=== PATIENT | female | born 1955 | race Caucasian/White ===

== ENCOUNTER 2017-05-24 15:02 | Outpatient (CLI) | payer MEDICAID ==
--- NOTE | 2017-05-25 12:17 | XRAY Report ---
TWO-VIEW RIGHT WRIST: 05/24/2017 HISTORY: Wrist pain. FINDINGS: There is no acute fracture or focus of destruction or malalignment. The soft tissues are within normal limits. The alignment is anatomic. Mild degenerative changes exist. IMPRESSION: MILD DEGENERATIVE CHANGES. NO ACUTE FRACTURE OR MALALIGNMENT. JOB #: [id number] EXT JOB #:[id number]
== END 2017-05-24 15:03 | disposition home or self-care (01) ==
LOC: DI.N 15:02
PROVIDERS: ATTEND Physician Assistant
DX: M19.041 Primary osteoarthritis, right hand (principal)

== ENCOUNTER 2017-12-10 16:32 | Outpatient (CLI) | payer MEDICAID | END 2017-12-10 16:33 | disposition home or self-care (01) | LOC: LAB.R 16:32 | PROVIDERS: ATTEND Physician Assistant Medical | DX: R10.13 Epigastric pain (principal) | CPT/HCPCS: 83013 ==

== ENCOUNTER 2017-12-22 08:00 | Outpatient (CLI) | payer MEDICAID ==
[2017-12-22 12:57] LABS: BASOPHILS # (AUTO) 0.1 10^3/uL (0.0-0.1); BASOPHILS % (AUTO) 0.8 %; EOSINOPHILS # (AUTO) 0.2 10^3/uL (0.0-0.7); EOSINOPHILS % (AUTO) 2.5 %; HGB - HEMOGLOBIN 13.6 g/dL (12.0-16.0); LYMPHOCYTES # (AUTO) 2.7 10^3/uL (1.5-3.5); LYMPHOCYTES % (AUTO) 35.5 %; MEAN CORPUSCULAR HEMOGLOBIN 29.1 pg (27.0-31.0); MEAN CORPUSCULAR HGB CONC 33.4 g/dL (32.0-36.0); MEAN CORPUSCULAR VOLUME 86.9 fL (81.0-99.0); MEAN PLATELET VOLUME 8.9 fL (7.9-10.8); MONOCYTES # (AUTO) 0.7 10^3/uL (0.0-1.0); MONOCYTES % (AUTO) 8.4 %; NEUTROPHILS # (AUTO) 4.1 10^3/uL (1.5-6.6); NEUTROPHILS % (AUTO) 52.8 %; PLT - PLATELET COUNT 259 10^3/uL (130-450); RED BLOOD COUNT 4.67 10^6/uL (4.20-5.40); RED CELL DISTRIBUTION WIDTH 12.6 % (12.0-15.0); WHITE BLOOD COUNT 7.7 x10^3/uL (4.8-10.8)
[2017-12-22 13:18] LABS: CALCIUM 9.8 mg/dL (8.5-10.3)
== END 2017-12-22 08:01 | disposition home or self-care (01) ==
LOC: LAB.N 08:00
PROVIDERS: ATTEND Physician Assistant Medical
DX: R10.13 Epigastric pain (principal)
CPT/HCPCS: 36415; 80048; 85025

== ENCOUNTER 2019-08-23 11:49 | Emergency (ER) | payer MEDICAID ==
[2019-08-23 11:55] VITALS: BP 164/84
--- NOTE | 2019-08-23 12:09 | ED Physician Documentation ---
PD HPI OPHTHO - Stated complaint Stated Complaint: VISION CHANGES - Chief complaint Chief Complaint: Heent - History obtained from History obtained from: Patient - History of Present Illness Timing - onset: Yesterday Timing - details: Abrupt onset, Still present (She awoke with an appearance of a floater in the right eye along the lateral visual field. It looks like a small worm. Through the day yesterday she noticed the lateral aspect of her visual field become more hazy and slightly darkened. The rest of the visual field seemed normal. She has some macular degeneration in the other eye so really is dependent on this I has her concerned.) Location: Right Quality / character: Other (floaters and clouded vision laterally). No: Aching, Throbbing Associated symptoms: Decreased vision. No: Redness, Swelling, Photophobia, Double vision Contributing factors: No: Recent URI, Blunt trauma Similar symptoms before: Has not had sx before Recently seen: Not recently seen Review of Systems Constitutional: denies: Fever Eyes: reports: Decreased vision. denies: Loss of vision, Photophobia, Discharge, Irritation Nose: denies: Rhinorrhea / runny nose, Congestion Throat: denies: Sore throat Cardiac: denies: Chest pain / pressure Respiratory: denies: Cough Neurologic: denies: Focal weakness, Numbness PD PAST MEDICAL HISTORY - Past Medical History Past Medical History: Yes - Present Medications Home Medications: Ambulatory Orders Medication Instructions Recorded Confirmed No Known Home Medications 08/23/19 08/23/19 - Allergies Allergies/Adverse Reactions: Allergies Allergy/AdvReac Type Severity Reaction Status Date / Time bee venom protein (honey bee) Allergy Hives Verified 08/23/19 11:55 Fish Containing Products Allergy Hives Verified 08/23/19 11:55 latex Allergy Hives Verified 08/23/19 11:55 PD ED PE NORMAL - Vitals Vital signs reviewed: Yes - General General: Alert and oriented X 3, No acute distress, Well developed/nourished - HEENT HEENT: PERRL, EOMI, Pharynx benign PD ED PE EXPANDED - Eyes Eyes: Right eye, Anterior chambers clear, Normal fundi, Other (I can see some cloudiness in the posterior chamber laterally. The retinal blood flow appears normal through most of the posterior chamber but hard to visualize fully at the lateral edge due to the cloudiness. This is suggestive of a posterior chamber blood. We will have ophthalmology tried to examine her to distinguish a vitreous hemorrhage versus retinal detachment.). No: Eyelid injury, Eyelid swelling, Exudate Results - Vitals Vitals: Oxygen O2 Source Room air PD MEDICAL DECISION MAKING - ED course Complexity details: considered differential (It does not sound neurologic nor cerebrovascular. It seems like a high process. The fundus is good and most of the retina is visible but there is cloudiness to the edge and I cannot fully distinguish a vitreous hemorrhage versus a partial retinal detachment. We contacted [facility] and they are able to see the patient in about an hour in the office. The patient is discharged from the department and will go there for further assessment.), d/w patient Departure - Departure Disposition: Home, Self Care Clinical Impression: Chest pain Qualifiers: Chest pain type: precordial pain Qualified Code(s): R07.2 - Precordial pain Floaters in visual field Qualifiers: Laterality: unspecified laterality Qualified Code(s): H43.399 - Other vitreous opacities, unspecified eye Condition: Stable Record reviewed to determine appropriate education?: Yes Instructions: ED Chest Pain Atypical Unkn Cause Follow-Up: Yohan Hernandez PA-C [Primary Care Provider] - Rich Pemberton MD [Physician No Access] - Comments: Go to the ophthalmology office directly from here for further evaluation.(appt at 2:30). Regarding the episodes of chest pain and palpitations, follow-up with your primary care for potential Holter monitor and ultrasound of the heart called an echocardiogram. Otherwise could follow-up with cardiology as well and I gave the name of 1 of the art dealer in [facility] though it does not have to be that particular art dealer but anybody from the group. Discharge Date/Time: 08/23/19 13:32
== END 2019-08-23 13:32 | disposition home or self-care (01) ==
LOC: ED 11:49
DX: H43.391 Other vitreous opacities, right eye (principal); H53.8 Other visual disturbances; R07.9 Chest pain, unspecified; R00.2 Palpitations
CPT/HCPCS: 93005; 99283

== ENCOUNTER 2019-12-12 13:23 | Outpatient (CLI) | payer MEDICAID ==
--- NOTE | 2019-12-12 15:22 | XRAY Report ---
Reason: PAIN IN LEFT WRIST Procedure Date: 12/12/2019 Accession Number: [id number] / [id number] Procedure: XRN - Wrist 3 View LT CPT Code: Final Report FULL RESULT: EXAM: LEFT WRIST RADIOGRAPHY 3 VIEWS EXAM DATE: 12/12/2019. CLINICAL HISTORY: Left wrist pain. COMPARISON: None. TECHNIQUE: PA, oblique and lateral views. FINDINGS: Bones: No acute fracture or other acute osseous abnormality. Joints: Widening of the navicular-lunate joint, 5.5 mm, the navicular and the lunate are to adjacent shallow well-defined concavities in the distal radius. The other joints appear normal. Soft Tissues: Normal. No soft tissue swelling. IMPRESSION: Widening of the navicular-lunate joint space, suggesting a ligament injury, probably of long-standing. This could be further evaluated with MRI. Otherwise normal examination. RADIA
== END 2019-12-12 13:24 | disposition home or self-care (01) ==
LOC: DI.N 13:23
PROVIDERS: ATTEND Physician Assistant Medical
DX: M25.532 Pain in left wrist (principal)

== ENCOUNTER 2020-05-29 08:00 | Outpatient (CLI) | payer MEDICAID ==
[2020-05-29 18:44] LABS: BASOPHILS # (AUTO) 0.1 10^3/uL (0.0-0.1); BASOPHILS % (AUTO) 0.8 %; EOSINOPHILS # (AUTO) 0.2 10^3/uL (0.0-0.7); EOSINOPHILS % (AUTO) 3.2 %; HGB - HEMOGLOBIN 13.6 g/dL (12.0-16.0); LYMPHOCYTES # (AUTO) 2.3 10^3/uL (1.5-3.5); LYMPHOCYTES % (AUTO) 34.7 %; MEAN CORPUSCULAR HEMOGLOBIN 28.3 pg (27.0-31.0); MEAN CORPUSCULAR HGB CONC 31.2 g/dL (32.0-36.0); MEAN CORPUSCULAR VOLUME 90.8 fL (81.0-99.0); MEAN PLATELET VOLUME 11.1 fL (7.9-10.8); MONOCYTES # (AUTO) 0.5 10^3/uL (0.0-1.0); MONOCYTES % (AUTO) 8.3 %; NEUTROPHILS # (AUTO) 3.4 10^3/uL (1.5-6.6); NEUTROPHILS % (AUTO) 52.7 %; PLT - PLATELET COUNT 265 10^3/uL (130-450); RED CELL DISTRIBUTION WIDTH 12.9 % (12.0-15.0); WHITE BLOOD COUNT 6.5 x10^3/uL (4.8-10.8)
[2020-05-29 19:02] LABS: ALBUMIN 3.9 g/dL (3.2-5.5); ALBUMIN/GLOBULIN RATIO 1.1 (1.0-2.2); BILIRUBIN,TOTAL 0.6 mg/dL (0.2-1.0); CALCIUM 9.6 mg/dL (8.5-10.3); CREATININE 0.9 mg/dL (0.4-1.0); TOTAL PROTEIN 7.4 g/dL (6.7-8.2)
[2020-05-29 19:14] LABS: THYROID STIMULATING HORMONE 2.58 uIU/mL (0.34-5.60)
[2020-05-29 19:16] LABS: FREE T4 (FREE THYROXINE) 0.89 ng/dL (0.58-1.64)
== END 2020-05-29 23:59 | disposition home or self-care (01) ==
LOC: LAB.WCP 08:00
PROVIDERS: ATTEND Physician Assistant Medical
DX: R53.83 Other fatigue (principal)
CPT/HCPCS: 36415; 80053; 84439; 84443; 85025

== ENCOUNTER 2020-06-26 12:23 | Outpatient (CLI) | payer MEDICAID ==
--- NOTE | 2020-06-26 16:27 | CT Report ---
PROCEDURE: Sinuses INDICATIONS: LEFT MAXILLARY SINUSITIS TECHNIQUE: Noncontrast 3.0 mm axial images acquired from the frontal sinuses to the mid-sella, with coronal and sagittal reformats. For radiation dose reduction, the following was used: automated exposure control , adjustment of mA and/or kV according to patient size. COMPARISON: None. FINDINGS: Image quality: Excellent. Sinuses: Minimal mucosal thickening is present within the maxillary ethmoid sinuses. Frontal sinuses are hypoplastic. Ostiomeatal Complexes: Ostiomeatal complexes are patent. No Aura cells. Miscellaneous: Visualized intra-orbital contents are normal. No yolanda bullosa. Minimal rightward n silva septal deviation. No paradoxical turbinates. IMPRESSION: 1. Minimal maxillary and ethmoid mucosal thickening. 2. Ostiomeatal complexes are patent. Reviewed by: Pepper Coreas MD on 06/26/2020 4:25 PM PDT Approved by: Pepper Coreas MD on 06/26/2020 4:25 PM PDT Station ID: [id number]
== END 2020-06-26 12:24 | disposition home or self-care (01) ==
LOC: DI 12:23
PROVIDERS: ATTEND Physician Assistant
DX: J34.89 Other specified disorders of nose and nasal sinuses (principal)
CPT/HCPCS: 70486

== ENCOUNTER 2020-09-13 07:00 | Outpatient (CLI) | payer MEDICAID | END 2020-09-13 23:59 | disposition home or self-care (01) | LOC: COV 07:00 | PROVIDERS: ATTEND Surgery | DX: Z01.812 Encounter for preprocedural laboratory examination (principal); R10.13 Epigastric pain; R68.81 Early satiety; Z20.828 Contact with and (suspected) exposure to other viral communicable diseases ==

== ENCOUNTER 2020-09-19 11:20 | Day surgery (SDC) | payer MEDICAID ==
[2020-09-19] MEDS ORDERED: LACTATED RINGERS 1,000 ML IV ONE ×2 (12:41→14:17)
--- NOTE | 2020-09-19 13:18 | ANESTHESIA ---
Pre-Anesthesia VS, & Labs - Diagnosis epigastric pain, family history of colon cancer - Procedure EGD with biopsies, colonoscopy Vital Signs: Temp Pulse Resp BP Pulse Ox 36.4 C L 75 18 146/82 H 97 09/19/20 12:08 09/19/20 12:08 09/19/20 12:08 09/19/20 12:08 09/19/20 12:08 Height: 5 ft Weight (kg): 73 kg Body Mass Index: 31.4 BMI Classification: Obese - NPO >8 hours - Is Patient ?: No Home Medications and Allergies Home Medications: Ambulatory Orders Fluticasone [Flonase] 1 sprays ABEBE BID 09/11/20 buPROPion [Wellbutrin Sr] 150 mg PO BID 09/11/20 cloNIDine [Catapres] 0.1 mg PO ONCE 09/11/20 lamoTRIgine [LaMICtal] 100 mg PO BID 09/11/20 Fluticasone [Flonase] 1 sprays ABEBE BID 09/11/20 buPROPion [Wellbutrin Sr] 150 mg PO BID 09/11/20 cloNIDine [Catapres] 0.1 mg PO ONCE 09/11/20 lamoTRIgine [LaMICtal] 100 mg PO BID 09/11/20 Allergies/Adverse Reactions: Allergies Allergy/AdvReac Type Severity Reaction Status Date / Time bee venom protein (honey bee) Allergy Hives Verified 08/23/19 11:55 Fish Containing Products Allergy Hives Verified 08/23/19 11:55 latex Allergy Anaphylaxis Verified 09/11/20 11:42 povidone-iodine Allergy Rash Verified 09/11/20 11:42 [From Betadine] soap [From Betadine] Allergy Rash Verified 09/11/20 11:42 Sulfa (Sulfonamide Allergy Hives Verified 09/11/20 11:42 Antibiotics) Anes History & Medical History - Anesthetic History Anesthesia Complications: reports: Post-Operative Nausea/Vomiting, Emergence delirium - Medical History Cardiovascular: reports: High cholesterol Pulmonary: reports: None Gastrointestinal: reports: GERD Urinary: reports: None Neuro: reports: None Musculoskeletal: reports: Osteoarthritis Endocrine/Autoimmune: reports: None Blood Disorders: reports: None Skin: reports: None Smoking Status: Former smoker (quit 1 year ago) Psychosocial: reports: Anxiety, Other (PTSD) History of Cancer?: No - Surgical History General: Colonoscopy Gynecologic: section, Hysterectomy Orthopedic: Other Exam General: Alert, Oriented x3, Cooperative, No acute distress Dental: Partials Lower Mouth Openin Fingerbreadth Neck Mobility: Normal Mallampati classification: II Thyromental Distance: 4-6 cm Mental/Cognitive Status: Alert/Oriented X3, Normal for patient Plan Anesthesia Type: MAC Consent for Procedure(s) Verified and Reviewed: Yes Code Status: Attempt Resuscitation ASA classification: 2-Mild systemic disease Is this case an emergency?: No
[2020-09-19] MEDS ORDERED: fentaNYL 100 MCG/2 ML VIAL IVP ONE (13:34)
[2020-09-19] MEDS ORDERED: PROPOFOL 200 MG/20 ML VIAL IVP ONE (13:34)
[2020-09-19 14:39] VITALS: BP 130/69
--- NOTE | 2020-09-19 16:30 | ANESTHESIA POST OP EVALUATION ---
Anesthesia Post Eval - Post Anesthesia Eval Vitals: Last Vital Signs Temp 36.2 C L 09/19/20 14:13 Pulse 80 09/19/20 14:25 Resp 16 09/19/20 14:25 BP 130/69 09/19/20 14:25 Pulse Ox 100 09/19/20 14:25 CV Function Including HR & BP: positive: Stable Pain Control: positive: Satisfactory Nausea & Vomiting: positive: Negative Mental Status: positive: Baseline Respiratory Status: Airway Patent Hydration Status: Satisfactory Anesthesia Complications: positive: None
== END 2020-09-19 11:21 | disposition home or self-care (01) ==
LOC: SDS 11:20
PROVIDERS: ATTEND Surgery
PROC: 0DB68ZX Excision of Stomach, Via Natural or Artificial Opening Endoscopic, Diagnostic (ICD-10-PCS; principal; 2020-09-19 12:30)
DX: K29.50 Unspecified chronic gastritis without bleeding (principal); K20.90 Esophagitis, unspecified without bleeding; E66.9 Obesity, unspecified; Z68.31 Body mass index [BMI] 31.0-31.9, adult; Z80.0 Family history of malignant neoplasm of digestive organs; Z83.71 Family history of colonic polyps
CPT/HCPCS: 43239; J7120

== ENCOUNTER 2020-11-11 06:52 | Outpatient (CLI) | payer MEDICAID | END 2020-11-11 23:59 | disposition short-term general hospital (02) | LOC: EMS 06:52 | DX: M54.9 Dorsalgia, unspecified (principal) | CPT/HCPCS: A0425; A0427; A0999 ==

== ENCOUNTER 2021-07-03 17:20 | Outpatient (CLI) | payer MEDICAID | END 2021-07-03 23:59 | disposition home or self-care (01) | LOC: LAB 17:20 | PROVIDERS: ATTEND Physician Assistant Medical | DX: R05 Cough (principal); Z20.822 Contact with and (suspected) exposure to COVID-19 ==

== ENCOUNTER 2022-02-25 21:40 | Outpatient (CLI) | payer MEDICARE, MEDICAID | END 2022-02-25 21:41 | disposition critical access hospital (66) | LOC: EMS 21:40 | DX: M54.50 Low back pain, unspecified (principal) | CPT/HCPCS: A0425; A0429 ==

== ENCOUNTER 2022-02-25 22:00 | Emergency (ER) | payer MEDICARE, MEDICAID ==
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
[2022-02-25] MEDS ORDERED: HYDROmorphone 1 MG/ML CARPUJECT IVP STA (22:51)
[2022-02-25] MEDS ORDERED: ONDANSETRON 4 MG/2 ML VIAL IVP STA (22:51)
[2022-02-25] MEDS ORDERED: SODIUM CHLORIDE 0.9% 1,000 ML IV STA (22:52)
[2022-02-25] MEDS ORDERED: IOVERSOL 320 100 ML VIAL IVP ONE ×2 (23:09→23:57)
[2022-02-25 23:14] LABS: BASOPHILS # (AUTO) 0.1 10^3/uL (0.0-0.1); BASOPHILS % (AUTO) 0.5 %; EOSINOPHILS # (AUTO) 0.2 10^3/uL (0.0-0.7); EOSINOPHILS % (AUTO) 1.7 %; HCT - HEMATOCRIT 42.2 % (37.0-47.0); LYMPHOCYTES # (AUTO) 2.5 10^3/uL (1.5-3.5); LYMPHOCYTES % (AUTO) 25.2 %; MEAN CORPUSCULAR HGB CONC 33.2 g/dL (32.0-36.0); MEAN CORPUSCULAR VOLUME 87.4 fL (81.0-99.0); MEAN PLATELET VOLUME 10.7 fL (7.9-10.8); MONOCYTES # (AUTO) 0.8 10^3/uL (0.0-1.0); MONOCYTES % (AUTO) 7.6 %; NEUTROPHILS # (AUTO) 6.4 10^3/uL (1.5-6.6); NEUTROPHILS % (AUTO) 64.8 %; PLT - PLATELET COUNT 253 10^3/uL (130-450); RED BLOOD COUNT 4.83 10^6/uL (4.20-5.40); RED CELL DISTRIBUTION WIDTH 12.7 % (12.0-15.0); WHITE BLOOD COUNT 9.9 x10^3/uL (4.8-10.8)
[2022-02-25 23:27] LABS: ALBUMIN 3.7 g/dL (3.2-5.5); BILIRUBIN,TOTAL 0.5 mg/dL (0.2-1.0); CALCIUM 9.4 mg/dL (8.5-10.3); CREATININE 0.9 mg/dL (0.4-1.0); POTASSIUM 3.6 mmol/L (3.5-5.0); TOTAL PROTEIN 7.3 g/dL (6.7-8.2)
--- NOTE | 2022-02-26 00:43 | CT Report ---
PROCEDURE: Abdomen/Pelvis W INDICATIONS: Lower abdominal and pelvic pain CONTRAST: IV CONTRAST: Optiray 320 ml: 100 PO CONTRAST: *NO PO CONTRAST TECHNIQUE: After the administration of intravenous contrast, 5 mm thick sections acquired from the diaphragms to the symphysis. 5 mm thick coronal and sagittal reformats were acquired. For radiation dose reducti on, the following was used: automated exposure control, adjustment of mA and/or kV according to nilesh ent size. COMPARISON: None. FINDINGS: Image quality: Excellent. Lung bases: Unremarkable. Heart: Heart is normal in size. ABDOMEN: Liver:There is a small hypodensity in the right hepatic lobe measuring up to 1.4 cm suggestive of a slightly hyperdense cyst. A few additional scattered small hypodense foci are redemonstrated in the r ight and left hepatic lobe which are too small to characterize but likely represent cysts. Gallbladder:Surgically absent. Biliary ducts: No biliary ductal dilatation. Pancreas: Unremarkable. Spleen: Normal in size. Adrenal Glands: No adrenal nodules. Kidneys and Ureters: No hydronephrosis. Stomach and Bowel: Stomach, small bowel loops, and colon are normal in caliber and wall thickness. N o pericecal inflammatory changes to suggest appendicitis. Peritoneum: No abnormal intraperitoneal fluid. No free air. Ventral Wall: No hernia. Abdominal Nodes: No retroperitoneal or mesenteric adenopathy by size criteria. Vessels: Aorta and inferior vena cava are normal in size. PELVIS: Pelvic Organs:The uterus is surgically absent. Bladder: Unremarkable. Pelvic Nodes: No enlarged lymph nodes. Miscellaneous: No inguinal hernias are seen. Bones: Visualized osseous structures demonstrate no suspicious focal lesions. IMPRESSION: 1. No definite acute intra-abdominal abnormality. Specifically, no evidence of appendicitis or divert iculitis. Reviewed by: Dameon Doss MD on 02/26/2022 12:41 AM PDT Approved by: Dameon Doss MD on 02/26/2022 12:41 AM PDT Station ID: [id number]
[2022-02-26 01:10] LABS: BILIRUBIN,URINE NEGATIVE (NEGATIVE); GLUCOSE, URINE (UA) NEGATIVE (NEGATIVE); KETONES,URINE (UA) NEGATIVE (NEGATIVE); LEUKOCYTE ESTERASE, URINE NEGATIVE (NEGATIVE); NITRITE,URINE NEGATIVE (NEGATIVE); OCCULT BLOOD,URINE TRACE-INTA (NEGATIVE); PROTEIN,URINE NEGATIVE (NEGATIVE); UROBILINOGEN,URINE 0.2 (NORMAL) E.U./dL (NORMAL)
[2022-02-26 01:11] LABS: CLARITY,URINE CLEAR (CLEAR)
[2022-02-26] MEDS ORDERED: HYDROcod/ACET 5/325 Prepack 4 PO STA (01:25)
[2022-02-26 01:40] VITALS: BP 111/81
== END 2022-02-26 01:38 | disposition home or self-care (01) ==
LOC: EDSEX → EDUNIT# → ED 22:00
DX: M54.50 Low back pain, unspecified (principal); Z87.891 Personal history of nicotine dependence
CPT/HCPCS: 36415; 74177; 80053; 81003; 83690; 85025; 85651; 96374; 99282; 99284; J1170; Q9967; 81001; 87086

== ENCOUNTER 2022-03-06 11:40 | Outpatient (CLI) | payer MEDICARE, MEDICAID ==
--- NOTE | 2022-03-06 16:02 | XRAY Report ---
PROCEDURE: Lumbar Spine 2 View INDICATIONS: LUMBAGO W/ SCIATIC, LEFT SIDE TECHNIQUE: 3 views of the lumbar spine were acquired. COMPARISON: None. FINDINGS: Bones: 5 [id number] vertebrae are present. There is normal bony alignment. No vertebral body compression fractures. No suspicious bony lesions. Mild degenerative disc changes noted throughout t he lumbar spine. Mild L3-L4, L4-L5 and L5-S1 facet hypertrophy. Soft tissues: Overlying bowel gas pattern is normal. No suspicious soft tissue calcifications. IMPRESSION: 1. Multilevel degenerative disc disease. 2. Multilevel facet arthropathy. 3. No fracture. No acute osseous lesion. If there is continued clinical concern for pathology, then M RI should be considered for further evaluation. Reviewed by: Mary Pelayo MD, PhD on 03/06/2022 4:01 PM PDT Approved by: Mary Pelayo MD, PhD on 03/06/2022 4:01 PM PDT Station ID: [id number]
== END 2022-03-06 11:41 | disposition home or self-care (01) ==
LOC: DI.N 11:40
PROVIDERS: ATTEND Physician Assistant
DX: M47.816 Spondylosis without myelopathy or radiculopathy, lumbar region (principal); M47.817 Spondylosis without myelopathy or radiculopathy, lumbosacral region; M51.36 Other intervertebral disc degeneration, lumbar region

== ENCOUNTER 2022-06-10 11:07 | Outpatient (CLI) | payer MEDICARE ==
[2022-06-10 18:06] LABS: THYROID STIMULATING HORMONE 4.6 uIU/mL (0.34-5.60)
[2022-06-10 18:08] LABS: FREE T3 3.27 pg/mL (2.5-3.9); FREE T4 (FREE THYROXINE) 0.83 ng/dL (0.58-1.64)
== END 2022-06-10 11:08 | disposition home or self-care (01) ==
LOC: LAB.N 11:07
PROVIDERS: ATTEND Physician Assistant
DX: Z86.39 Personal history of other endocrine, nutritional and metabolic disease (principal)
CPT/HCPCS: 36415; 84439; 84443; 84481

== ENCOUNTER 2022-06-11 14:23 | Outpatient (CLI) | payer MEDICAID, MEDICARE ==
--- NOTE | 2022-06-12 10:15 | Mammography Report ---
BILATERAL DIGITAL SCREENING MAMMOGRAM 3D/2D: 06/11/2022 CLINICAL: Routine screening. Comparison is made to exams dated: 12/06/2013 mammogram - [facility] and 03/04/2016 mammogram - [facility]. There are scattered areas of fibroglandular density in both breasts (category b / 25%-50% glandular t issue). No significant masses, calcifications, or other findings are seen in either breast. There has been no significant interval change. IMPRESSION: NEGATIVE There is no mammographic evidence of malignancy. A 1 year screening mammogram is recommended. Based on the Tyrer Cuzick model (a risk assessment model) the patients lifetime risk is 2.5% and her 10 year risk is 1.2%. According to the ACR, ACS, and NCCN guidelines, an annual breast MRI exam debbie g with mammogram is recommended if the patients lifetime risk is 20% or greater. This exam was interpreted at Station ID: [id number]. NOTE: For mammograms, a report in lay terms will be sent to the patient. Approximately 15% of breast malignancies will not be visualized mammographically. In the management of a palpable breast mass, a negative mammogram must not discourage biopsy of a clinically suspicious lesion. Electronically Signed By: Howie de la cruz/lyndsey:06/11/2022 16:36:50 ACR BI-RADS Category 1: Negative 3341F PARENCHYMAL PATTERN: (A) - The breast(s) demonstrate(s) scattered fibroglandular densities. BI-RADS CATEGORY: (1) - 1 RECOMMENDATION: (ANNUAL) - Recommend routine annual screening mammography. [id number] 1 year screening LATERALITY: (B)
== END 2022-06-11 14:24 | disposition home or self-care (01) ==
LOC: DI 14:23
PROVIDERS: ATTEND Nurse Practitioner Family
DX: Z12.31 Encounter for screening mammogram for malignant neoplasm of breast (principal)

== ENCOUNTER 2022-06-11 14:27 | Outpatient (CLI) | payer MEDICAID, MEDICARE ==
--- NOTE | 2022-06-11 16:31 | DEXA Report ---
PROCEDURE: Dexa Spine and/or Hip INDICATIONS: POST MENOPAUSAL TECHNIQUE: Dual energy x-ray absorptiometry (DXA) was performed on a [email or web address] System. Regions measur ed are the AP Spine, femoral neck, and if needed forearm. COMPARISON: None. FINDINGS: Lumbar Spine: Bone Mineral Density 1.236 g/cm/cm, normal. Left Hip: Bone Mineral Density 0.864 g/cm/cm,T score -1.1, osteopenia Left Femoral Neck: Bone Mineral Density 0.79 g/cm/cm, T score -1.8, osteopenia IMPRESSION: Osteopenia Patients with diagnosis of osteoporosis or osteopenia should have regular bone mineral density assess ment. For those eligible for Medicare, routine testing is allowed once every 2 years. Testing frequ ency can be increased for patients who have rapidly progressing disease or for those who are receivin g medical therapy to restore bone mass. Reviewed by: Alexis Souza MD on 06/11/2022 4:30 PM PDT Approved by: Alexis Souza MD on 06/11/2022 4:30 PM PDT Station ID: [id number]
== END 2022-06-11 14:28 | disposition home or self-care (01) ==
LOC: DI 14:27
PROVIDERS: ATTEND Nurse Practitioner Family
DX: M85.89 Other specified disorders of bone density and structure, multiple sites (principal); Z78.0 Asymptomatic menopausal state

== ENCOUNTER 2024-01-15 12:16 | Outpatient (CLI) | payer MEDICARE, MEDICAID ==
[2024-01-15 18:42] LABS: BASOPHILS # (AUTO) 0.1 10^3/uL (0.0-0.1); EOSINOPHILS # (AUTO) 0.2 10^3/uL (0.0-0.7); EOSINOPHILS % (AUTO) 3.4 %; HCT - HEMATOCRIT 45.4 % (37.0-47.0); HGB - HEMOGLOBIN 13.8 g/dL (12.0-16.0); LYMPHOCYTES # (AUTO) 2.2 10^3/uL (1.5-3.5); LYMPHOCYTES % (AUTO) 36.3 %; MEAN CORPUSCULAR HEMOGLOBIN 27.5 pg (27.0-31.0); MEAN CORPUSCULAR HGB CONC 30.4 g/dL (32.0-36.0); MEAN CORPUSCULAR VOLUME 90.6 fL (81.0-99.0); MEAN PLATELET VOLUME 11.1 fL (7.9-10.8); MONOCYTES # (AUTO) 0.5 10^3/uL (0.0-1.0); MONOCYTES % (AUTO) 8.3 %; NEUTROPHILS # (AUTO) 3.1 10^3/uL (1.5-6.6); NEUTROPHILS % (AUTO) 50.8 %; PLT - PLATELET COUNT 274 10^3/uL (130-450); RED BLOOD COUNT 5.01 10^6/uL (4.20-5.40); RED CELL DISTRIBUTION WIDTH 12.5 % (12.0-15.0); WHITE BLOOD COUNT 6.1 x10^3/uL (4.8-10.8)
[2024-01-15 19:15] LABS: ALBUMIN 3.9 g/dL (3.2-5.5); ALBUMIN/GLOBULIN RATIO 1.1 (1.0-2.2); BILIRUBIN,TOTAL 0.3 mg/dL (0.2-1.0); CALCIUM 10.1 mg/dL (8.5-10.3); TOTAL PROTEIN 7.3 g/dL (6.4-8.9)
== END 2024-01-15 12:17 | disposition home or self-care (01) ==
LOC: LAB.N 12:16
PROVIDERS: ATTEND Nurse Practitioner Family
DX: R12 Heartburn (principal); R19.06 Epigastric swelling, mass or lump
CPT/HCPCS: 36415; 80053; 85025